=== PATIENT | female | born 1990 | race Caucasian/White ===

== ENCOUNTER → 2017-11-15 | Outpatient (CLI) | payer OTHER ==
--- NOTE | 2017-11-15 16:39 | RAD ---
CT study of the abdomen and pelvis without contrast Clinical indications: History of ureteral stone. COMPARISON: None currently available. TECHNIQUE: Noncontrast helical CT scanning of abdomen and pelvis was performed. Without contrast, the sensitivity to detect organ pathology and GI tract pathology is decreased. PQRS compliance Statement One or more of the following individualized dose reduction techniques were utilized for this study: 1. Automated exposure control 2. Adjustment of the mA and/or kV according to patient size 3. Use of iterative reconstruction technique FINDINGS: The liver and spleen and pancreas are homogeneous in appearance on this noncontrast study. The gallbladder is surgically absent. No extrahepatic biliary ductal dilatation is seen. No adrenal mass is evident. No renal stone or ureteral stone or hydronephrosis or hydroureter is seen. The urinary bladder wall is smooth. No perinephric inflammatory change or free fluid is evident. No uterine mass is seen. There is a dominant right ovarian cyst measuring 4.4 cm. No free fluid is seen around the right ovary or within the cul-de-sac. No focal aneurysmal dilatation of the abdominal aorta is seen. No enlarged abdominal or pelvic lymphadenopathy is seen. No obstructive bowel pattern is seen. The appendix is normal. No free air is seen. No osteolytic process is seen. No lung base consolidation is seen. IMPRESSION: 4.4 cm right ovarian cyst. No free fluid. Electronically signed by: Onel Mancini MD (11/15/2017 4:36 PM) [id number]
== END | disposition home or self-care (01) ==
LOC: CT 08:59
PROVIDERS: ATTEND Urology
DX: N20.1 Calculus of ureter (principal); N83.201 Unspecified ovarian cyst, right side; Z87.442 Personal history of urinary calculi
CPT/HCPCS: 74176